=== PATIENT | male | born 1980 | race Caucasian/White ===

== ENCOUNTER 2024-03-29 01:58 | Emergency (ER) | payer SELFPAY ==
[2024-03-29 02:06] VITALS: BP 127/83; PULSE 73; RESP 20; TEMP 36.6; O2SAT 100; BMI 23.0
--- NOTE | 2024-03-29 02:08 | W.ED.DIZZY ---
HPI - Dizziness General: Stated Complaint: Dizzy Time Seen by Provider: 03/29/24 02:02 History of Present Illness: HPI Narrative: 43-year-old man who presents emergency room with vertigo symptoms. He has had vertigo in the past. He has been in [facility] for about 30 days. He rolled over in bed and started having some dizziness. No focal motor deficits. No altered mental status. He is requesting meclizine. Related Data Previous Rx's Medication Instructions Recorded meclizine 25 mg tablet 25 mg PO QID PRN dizziness #20 tabs 03/29/24 Review of Systems Narrative: Constitutional symptoms: Negative except as documented in HPI. Skin symptoms: Negative except as documented in HPI. Eye symptoms: Negative except as documented in HPI. ENMT symptoms: Negative except as documented in HPI. Respiratory symptoms: Negative except as documented in HPI. Cardiovascular symptoms: Negative except as documented in HPI. Gastrointestinal symptoms: Negative except as documented in HPI. Genitourinary symptoms: Negative except as documented in HPI. Musculoskeletal symptoms: Negative except as documented in HPI. Neurologic symptoms: Negative except as documented in HPI. Psychiatric symptoms: Negative except as documented in HPI. Endocrine symptoms: Negative except as documented in HPI. Physical Exam Narrative: EXAM NARRATIVE: General: Alert, no acute distress. Skin: warm and dry Head: Normocephalic Neck: Trachea midline Eye: Extraocular movements are intact. Ears, nose, mouth and throat: Oral mucosa moist Respiratory: Respirations are non-labored Musculoskeletal: Normal ROM Neurological: Alert and oriented, No focal neurological deficit observed. Psychiatric: Cooperative, appropriate mood & affect. MDM - Dizziness Medical Decision Making Assessment and plan: Vertigo ?Meclizine in the emergency room. - Discharged home - Discussed plan with patient. Answered any questions. - Evaluation and treatment of this problem were appropriate in the emergency setting. No radiology studies performed this visit Discharge Plan Discharge Patient Disposition: Home Clinical Impression: Vertigo Condition: Stable Prescriptions: New meclizine 25 mg tablet 25 mg PO QID PRN (Reason: dizziness) Qty: 20 0RF Discharge Orders: Discharge ED (Routine); Ordered 03/29/24 Ordered By: Tatianna Tarango Discharge Diet: Usual diet Discharge Activity: Increase activity as tolerated Patient Instructions: Vertigo (ED), Opioid Safety, Pain Management Activity Restrictions/Additional Instructions: Thank you for choosing [facility] for your healthcare needs today. Please realize this is an emergency room and that we are providing you with a medical screening exam and this may not be complete and all inclusive of all the testing and or work up that you may need to determine your ailment or severity of your illness. You have been screened and evaluated and felt safe for discharge. Health conditions do change or evolve sometimes and as such it is important that you follow up with your Primary Doctor to be re checked, 3-5 days is a general good time frame for follow up. You are always welcome to return to the ED for re assessment if your symptoms are worsening or you have new concerns Coding Level of Care Code ED [employer] for [place]
[2024-03-29] MEDS: meclizine 25 mg tablet 50 MG PO (02:14)
[2024-03-29 02:29] VITALS: BP 125/84; PULSE 72; O2SAT 99
== END 2024-03-29 02:30 | disposition home or self-care (01) ==
LOC: ER 02:16
PROVIDERS: Emergency Provider Emergency Medicine
DX: R42 Dizziness and giddiness (principal)
CPT/HCPCS: 99283; J8597

== ENCOUNTER 2024-12-28 18:42 | Emergency (ER) | payer SELFPAY ==
[2024-12-28 18:46] VITALS: BP 149/93; PULSE 98; RESP 18; TEMP 36.6; O2SAT 96; BMI 24.9
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
[2024-12-28 19:16] VITALS: BP 165/109; O2SAT 99
[2024-12-28] MEDS: ceFAZolin 1,000 MG in water for injection-sterile 2.5 ML 2.5 MG IM (20:14)
[2024-12-28 21:00] VITALS: BP 163/107; O2SAT 98
[2024-12-28] MEDS: lidocaine-epi 1% 20 mL INJ INJECTION (21:36)
[2024-12-28] MEDS: HYDROcodone-acetaminophen 5-325 mg Tablet 1 TAB PO (22:39)
[2024-12-28 22:44] VITALS: BP 138/90; PULSE 78; O2SAT 96
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
== END 2024-12-28 23:00 | disposition home or self-care (01) ==
PROVIDERS: Emergency Provider Physician Assistant
DX: S01.81XA Laceration without foreign body of other part of head, initial encounter (principal); S01.21XA Laceration without foreign body of nose, initial encounter; S01.312A Laceration without foreign body of left ear, initial encounter; Y04.2XXA Assault by strike against or bumped into by another person, initial encounter
CPT/HCPCS: 12011; 12052; 70486; 96372; 99284; J0690; J9999